=== PATIENT | male | born 1985 ===

== ENCOUNTER 2019-07-21 09:15 | Emergency (ER) | payer SELFPAY ==
[~2019-07-21] VITALS: Ht 188 cm; Wt 59.8 kg
[2019-07-21] MEDS ORDERED: SODIUM CHLORIDE 0.9% 1,000ML IVBOLUS ONE (10:00)
[2019-07-21] MEDS ORDERED: FAMOTIDINE 20 MG/2 ML IV ONE (10:00)
[2019-07-21] MEDS ORDERED: ONDANSETRON 2MG/ML, 2ML IVPush ONE (10:00)
[2019-07-21 10:17] LABS: RAPID INFLUENZA A Negative (Negative); RAPID INFLUENZA B Negative (Negative)
[2019-07-21] MEDS ORDERED: ONDANSETRON 2MG/ML, 2ML ONE (10:23)
[2019-07-21] MEDS ORDERED: FAMOTIDINE 20 MG/2 ML ONE (10:23)
[2019-07-21 10:31] LABS: BASOPHILS # (AUTO) 0.01 x10^3/uL (0-0.1); BASOPHILS % (AUTO) 0 % (0-1); EOSINOPHILS % (AUTO) 0 % (1-7); LYMPHOCYTES # (AUTO) 1.36 x10^3/uL (1-3.4); LYMPHOCYTES % (AUTO) 37 % (22-44); MD NO; MEAN CORPUSCULAR HGB CONC 33.4 g/dL (33.2-36.2); MEAN CORPUSCULAR VOLUME 89.7 fL (81-97); MONOCYTES # (AUTO) 0.47 x10^3/uL (0.2-0.8); MONOCYTES % (AUTO) 13 % (2-9); NEUTROPHILS # (AUTO) 1.84 x10^3/uL (1.8-6.8); NEUTROPHILS % (AUTO) 50 % (42-75); PLATELET COUNT 118 x10^3/uL (130-400); RED BLOOD COUNT 5.24 x10^6/uL (4.38-5.82)
--- NOTE | 2019-07-21 10:31 | NUR ---
N/V CHILLS FOR A WEEK. IV FLUIDS INFUSING AND MEDICATED PER ORDERS
[2019-07-21 10:41] LABS: ANION GAP 8 mmol/L (5-15); CALCIUM 8.7 mg/dL (8.5-10.1); CHLORIDE 103 mmol/L (98-107); CREATININE 0.99 mg/dL (0.7-1.3)
[2019-07-21 10:42] LABS: ALANINE AMINOTRANSFERASE 84 U/L (12-78); ALBUMIN 3.9 g/dL (3.4-5.0)
[2019-07-21 10:44] LABS: ALKALINE PHOSPHATASE 69 U/L (45-117); BILIRUBIN,TOTAL 0.6 mg/dL (0.2-1.0)
--- NOTE | 2019-07-21 11:07 | NUR ---
provided ice chips
[2019-07-21 11:08] VITALS: BP 124/72
== END 2019-07-21 11:53 | disposition home or self-care (01) ==
LOC: ED 11:40
DX: R11.2 Nausea with vomiting, unspecified (principal); B34.9 Viral infection, unspecified; R05 Cough
CPT/HCPCS: 36415; 71046; 80053; 83690; 85025; 87400; 96361; 96374; 96375; 99284; J2405; J3490; J7030